=== PATIENT | male | born 1945 | race Caucasian/White ===

== ENCOUNTER 2021-05-21 13:44 | Emergency (ER) | payer BC, MEDICARE ==
--- NOTE | 2021-05-21 13:07 | CT ---
PROCEDURE INFORMATION: Exam: CT Head Without Contrast Exam date and time: 05/21/2021 12:58 PM Age: 76 years old Clinical indication: Syncope and collapse; Additional info: Stroke protocol TECHNIQUE: Imaging protocol: Computed tomography of the head without contrast. Radiation optimization: All CT scans at this facility use at least one of these dose optimization techniques: automated exposure control; mA and/or kV adjustment per patient size (includes targeted exams where dose is matched to clinical indication); or iterative reconstruction. Other technique: STROKE PROTOCOL was implemented. COMPARISON: No relevant prior studies available. FINDINGS: Brain: Mild hypoattenuating foci are noted in the anterior lateral ventricular periventricular white matter bilaterally. No intracranial hemorrhage. No mass or acute cortical infarction identified. Cerebral ventricles: Prominence of the ventricular system and subarachnoid spaces is consistent with the patient's age of 76 years. Paranasal sinuses: Hypoplastic/absent right frontal sinus, normal variant. A cyst/polyp is present in the posterolateral left maxillary sinus. Mastoid air cells: Visualized mastoid air cells are well aerated. Orbital cavity: Bilateral prior cataract surgery. Vasculature: Atherosclerotic calcifications are present involving the carotid artery siphons and vertebral arteries bilaterally. Bones/joints: No acute abnormality. No acute fracture. Soft tissues: Unremarkable. IMPRESSION: 1. Age appropriate supratentorial and infratentorial atrophy. 2. 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 3. No acute intracranial abnormality identified. ASSESSMENT: ASPECTS ([place] Stroke Program Early CT Score) is 10.
--- NOTE | 2021-05-21 13:12 | EDM.PDOC ---
ED HPI GENERAL MEDICAL PROBLEM - General Stated Complaint: AMBULANCE Time Seen by Provider: 05/21/21 13:00 Source of Information: Reports: EMS, RN, RN Notes Reviewed History Limitations: Reports: Altered Mental Status - History of Present Illness INITIAL COMMENTS - FREE TEXT/NARRATIVE: Julio Cesar is a 76 y/o male who presents to the ED via [facility] for complaints of AMS. Per EMS report they received a call from the patient's daughter as they found him down at his home. Last known well was five days ago when the patient spoke his daughter on the phone; his daughter spoke with him on the phone yesterday and felt his speech was garbled and he seemed confused, however she did not check on him again until this morning at 11am. Upon arrival to this facility the patient's GCS 3, he is obtunded with eyes open and agonal breathing; no response to painful stimuli. Saturations high 80s on NRB at 15L. Mottling diffuse to trunk and extremities. Incontinent of bowel and bladder with decubital ulcers to buttocks and perineum - Related Data Allergies Allergy/AdvReac Type Severity Reaction Status Date / Time Unable to Assess Allergy Unverified 05/21/21 13:55 Home Meds: Home Meds . [Unable to Verify Home Med List] 05/21/21 [History] ED ROS GENERAL - Review of Systems Review Of Systems: Comprehensive ROS is negative, except as noted in HPI. - Physical Exam Exam: See Below Exam Limited By: Altered Mental Status General Appearance: Obtunded, Severe Distress Eye Exam: Bilateral Eye: Conjunctival Injection, PERRL (3mm) Ears: Normal External Exam, Normal Canal Nose: Normal Inspection, Normal Mucosa, No Blood Throat/Mouth: No: Normal Teeth (Poor dentition with ), Normal Oropharynx (Dry mucous membranes), Evidence of Tongue Biting Head Exam: Atraumatic, Normocephalic. No: Scalp Lacerations, Scalp Swelling, Scalp Abrasions, Scalp Ecchymosis, Scalp Hematoma, Facial Abrasions, Facial Ecchymosis, Facial Lacerations, Facial Swelling Neck: Normal Inspection Respiratory/Chest: Crackles (To bilateral bases), Accessory Muscle Use (Agonal breathing). No: Rales, Rhonchi, Wheezing, Stridor Cardiovascular: Normal Peripheral Pulses, No Gallop, No JVD, No Murmur, No Rub, Tachycardia. No: No Edema GI/Abdominal: Soft, No Distention, No Abnormal Bruit, No Mass, Pelvis Stable. No: Guarding, Rigid, Rebound (Male) Exam: Rash (Diffuse to bialteral groin with excoriation and ulceration to skin). No: Circumcised, Scrotal Swelling Rectal (Males) Exam: Other (Unstageable sacral ulcer to sacrum with purple and red discoloration) Neuro Exam (Abbreviated): Unresponsive, Abnormal Reflexes, Sensory/Motor Deficit Back Exam: Other (Unstageable sacral ulcer ) Extremities: Pedal Edema (+3 pitting, bilaterally), Slow Capillary Refill, Mottled Skin Exam: Mottled Course - Orders/Labs/Meds Orders: Active Orders 24 hr Category Date Time Status Pulse Oximetry Continuous Monitoring [OM.PC] Routine Oth 05/21/21 13:57 Ordered Labs: Laboratory Tests 05/21/21 05/21/21 05/21/21 Range/Units 13:10 13:10 13:10 WBC 14.0 H (5.0-10.0) 10^3/uL RBC 3.49 L (4.6-6.2) 10^6/uL Hgb 15.0 (14.0-18.0) g/dL Hct 44.8 (40.0-54.0) % MCV 128.4 H (80-100) fL MCH 43.0 H (27.0-34.0) pg MCHC 33.5 (33.0-35.0) g/dL Plt Count 102 L (150-450) 10^3/uL Neut % (Auto) 84.7 H (42.2-75.2) % Lymph % (Auto) 7.3 L (20.5-50.1) % [place] % (Auto) 7.8 (2-8) % Eos % (Auto) 0.1 L (1.0-3.0) % Baso % (Auto) 0.1 (0.0-1.0) % Add Manual Diff Yes Neutrophils % (Manual) 62 (42-75) % Band Neutrophils % 22 % Lymphocytes % (Manual) 9 L (20-50) % Monocytes % (Manual) 7 (2-8) % Vacuolated Monocytes 1+ slight Dohle Bodies 1+ slight Platelet Estimate Decreased Giant Platelets Few Macrocytosis 3+ marked PT 13.9 H (9.0-12.0) SEC INR 1.4 H (0.9-1.2) APTT 35.3 H (22.0-34.0) SEC Sodium 140 (136-145) mmol/L Potassium 4.9 (3.5-5.1) mmol/L Chloride 100 (98-107) mmol/L Carbon Dioxide 12 L (21-32) mmol/L Anion Gap 32.9 H (7-13) mEq/L BUN 148 H (7-18) mg/dL Creatinine 10.45 H* (0.70-1.30) mg/dL Est Cr Clr Drug Dosing TNP Estimated GFR (MDRD) 5 BUN/Creatinine Ratio 14.2 (No establ ref range) Glucose 124 H (70-99) mg/dL POC Glucose (70-99) mg/dL Lactic Acid (0.4-2.0) mmol/L Calcium 9.4 (8.5-10.1) mg/dL Magnesium 3.0 H (1.8-2.4) mg/dL Total Bilirubin 0.8 (0.2-1.0) mg/dL AST 87 H (15-37) U/L ALT 70 H (16-63) U/L Alkaline Phosphatase 81 (46-116) U/L Ammonia (11-32) umol/L Creatine Kinase 1400 H (39-308) U/L Troponin I High Sens 180 H* (<=76) pg/mL C-Reactive Protein 46.1 H (0.0-0.9) mg/dL B-Natriuretic Peptide 279 H (0-100) pg/ml Total Protein 8.6 H (6.4-8.2) g/dL Albumin 3.0 L (3.4-5.0) g/dL Globulin 5.6 Albumin/Globulin Ratio 0.54 TSH, Ultra Sensitive 0.43 (0.36-3.74) uIU/mL Urine Color (YELLOW) Urine Appearance (CLEAR) Urine pH (5.0-9.0) Ur Specific [place] (1.005-1.030) Urine Protein (NEGATIVE) Urine Glucose (UA) (NEGATIVE) Urine Ketones (NEGATIVE) Urine Occult Blood (NEGATIVE) Urine Nitrite (NEGATIVE) Urine Bilirubin (NEGATIVE) Urine Urobilinogen (0.2-1.0) mg/dL Ur Leukocyte Esterase (NEGATIVE) U Hyaline Cast (Auto) Urine RBC (0-5) /HPF Urine WBC (0-5/HPF) /HPF Ur Epithelial Cells (NOT SEEN) /HPF Amorphous Sediment (NOT SEEN) /HPF Urine Mucus (NOT SEEN) /LPF Urine Opiates Screen (NEGATIVE) Ur Oxycodone Screen (NEGATIVE) Urine Methadone Screen (NEGATIVE) Ur Barbiturates Screen (NEGATIVE) U Tricyclic Antidepress (NEGATIVE) Ur Phencyclidine Scrn (NEGATIVE) Ur Amphetamine Screen (NEGATIVE) U Methamphetamines Scrn (NEGATIVE) Urine MDMA Screen (NEGATIVE) U Benzodiazepines Scrn (NEGATIVE) Urine Cocaine Screen (NEGATIVE) U Marijuana (THC) Screen (NEGATIVE) Ethyl Alcohol < 3 (0) mg/dL SARS-CoV-2 RNA ([facility]ANTA) (NEGATIVE) 05/21/21 05/21/21 05/21/21 Range/Units 13:10 13:10 13:33 WBC (5.0-10.0) 10^3/uL RBC (4.6-6.2) 10^6/uL Hgb (14.0-18.0) g/dL Hct (40.0-54.0) % MCV (80-100) fL MCH (27.0-34.0) pg MCHC (33.0-35.0) g/dL Plt Count (150-450) 10^3/uL Neut % (Auto) (42.2-75.2) % Lymph % (Auto) (20.5-50.1) % [place] % (Auto) (2-8) % Eos % (Auto) (1.0-3.0) % Baso % (Auto) (0.0-1.0) % Add Manual Diff Neutrophils % (Manual) (42-75) % Band Neutrophils % % Lymphocytes % (Manual) (20-50) % Monocytes % (Manual) (2-8) % Vacuolated Monocytes Dohle Bodies Platelet Estimate Giant Platelets Macrocytosis PT (9.0-12.0) SEC INR (0.9-1.2) APTT (22.0-34.0) SEC Sodium (136-145) mmol/L Potassium (3.5-5.1) mmol/L Chloride (98-107) mmol/L Carbon Dioxide (21-32) mmol/L Anion Gap (7-13) mEq/L BUN (7-18) mg/dL Creatinine (0.70-1.30) mg/dL Est Cr Clr Drug Dosing Estimated GFR (MDRD) BUN/Creatinine Ratio (No establ ref range) Glucose (70-99) mg/dL POC Glucose (70-99) mg/dL Lactic Acid 7.5 H* (0.4-2.0) mmol/L Calcium (8.5-10.1) mg/dL Magnesium (1.8-2.4) mg/dL Total Bilirubin (0.2-1.0) mg/dL AST (15-37) U/L ALT (16-63) U/L Alkaline Phosphatase (46-116) U/L Ammonia < 10 L (11-32) umol/L Creatine Kinase (39-308) U/L Troponin I High Sens (<=76) pg/mL C-Reactive Protein (0.0-0.9) mg/dL B-Natriuretic Peptide (0-100) pg/ml Total Protein (6.4-8.2) g/dL Albumin (3.4-5.0) g/dL Globulin Albumin/Globulin Ratio TSH, Ultra Sensitive (0.36-3.74) uIU/mL Urine Color Graciela (YELLOW) Urine Appearance Clear (CLEAR) Urine pH 5.0 (5.0-9.0) Ur Specific [place] >= 1.030 (1.005-1.030) Urine Protein 100 H (NEGATIVE) Urine Glucose (UA) Negative (NEGATIVE) Urine Ketones Negative (NEGATIVE) Urine Occult Blood Negative (NEGATIVE) Urine Nitrite Negative (NEGATIVE) Urine Bilirubin Small H (NEGATIVE) Urine Urobilinogen 0.2 (0.2-1.0) mg/dL Ur Leukocyte Esterase Negative (NEGATIVE) U Hyaline Cast (Auto) Rare Urine RBC 0-5 (0-5) /HPF Urine WBC 0-5 (0-5/HPF) /HPF Ur Epithelial Cells Few (NOT SEEN) /HPF Amorphous Sediment Moderate (NOT SEEN) /HPF Urine Mucus Few H (NOT SEEN) /LPF Urine Opiates Screen (NEGATIVE) Ur Oxycodone Screen (NEGATIVE) Urine Methadone Screen (NEGATIVE) Ur Barbiturates Screen (NEGATIVE) U Tricyclic Antidepress (NEGATIVE) Ur Phencyclidine Scrn (NEGATIVE) Ur Amphetamine Screen (NEGATIVE) U Methamphetamines Scrn (NEGATIVE) Urine MDMA Screen (NEGATIVE) U Benzodiazepines Scrn (NEGATIVE) Urine Cocaine Screen (NEGATIVE) U Marijuana (THC) Screen (NEGATIVE) Ethyl Alcohol (0) mg/dL SARS-CoV-2 RNA ([facility]) (NEGATIVE) 05/21/21 05/21/21 05/21/21 Range/Units 13:33 13:38 14:38 WBC (5.0-10.0) 10^3/uL RBC (4.6-6.2) 10^6/uL Hgb (14.0-18.0) g/dL Hct (40.0-54.0) % MCV (80-100) fL MCH (27.0-34.0) pg MCHC (33.0-35.0) g/dL Plt Count (150-450) 10^3/uL Neut % (Auto) (42.2-75.2) % Lymph % (Auto) (20.5-50.1) % [place] % (Auto) (2-8) % Eos % (Auto) (1.0-3.0) % Baso % (Auto) (0.0-1.0) % Add Manual Diff Neutrophils % (Manual) (42-75) % Band Neutrophils % % Lymphocytes % (Manual) (20-50) % Monocytes % (Manual) (2-8) % Vacuolated Monocytes Dohle Bodies Platelet Estimate Giant Platelets Macrocytosis PT (9.0-12.0) SEC INR (0.9-1.2) APTT (22.0-34.0) SEC Sodium (136-145) mmol/L Potassium (3.5-5.1) mmol/L Chloride (98-107) mmol/L Carbon Dioxide (21-32) mmol/L Anion Gap (7-13) mEq/L BUN (7-18) mg/dL Creatinine (0.70-1.30) mg/dL Est Cr Clr Drug Dosing Estimated GFR (MDRD) BUN/Creatinine Ratio (No establ ref range) Glucose (70-99) mg/dL POC Glucose 108 H (70-99) mg/dL Lactic Acid (0.4-2.0) mmol/L Calcium (8.5-10.1) mg/dL Magnesium (1.8-2.4) mg/dL Total Bilirubin (0.2-1.0) mg/dL AST (15-37) U/L ALT (16-63) U/L Alkaline Phosphatase (46-116) U/L Ammonia (11-32) umol/L Creatine Kinase (39-308) U/L Troponin I High Sens (<=76) pg/mL C-Reactive Protein (0.0-0.9) mg/dL B-Natriuretic Peptide (0-100) pg/ml Total Protein (6.4-8.2) g/dL Albumin (3.4-5.0) g/dL Globulin Albumin/Globulin Ratio TSH, Ultra Sensitive (0.36-3.74) uIU/mL Urine Color (YELLOW) Urine Appearance (CLEAR) Urine pH (5.0-9.0) Ur Specific [place] (1.005-1.030) Urine Protein (NEGATIVE) Urine Glucose (UA) (NEGATIVE) Urine Ketones (NEGATIVE) Urine Occult Blood (NEGATIVE) Urine Nitrite (NEGATIVE) Urine Bilirubin (NEGATIVE) Urine Urobilinogen (0.2-1.0) mg/dL Ur Leukocyte Esterase (NEGATIVE) U Hyaline Cast (Auto) Urine RBC (0-5) /HPF Urine WBC (0-5/HPF) /HPF Ur Epithelial Cells (NOT SEEN) /HPF Amorphous Sediment (NOT SEEN) /HPF Urine Mucus (NOT SEEN) /LPF Urine Opiates Screen Negative (NEGATIVE) Ur Oxycodone Screen Negative (NEGATIVE) Urine Methadone Screen Negative (NEGATIVE) Ur Barbiturates Screen Negative (NEGATIVE) U Tricyclic Antidepress Negative (NEGATIVE) Ur Phencyclidine Scrn Negative (NEGATIVE) Ur Amphetamine Screen Negative (NEGATIVE) U Methamphetamines Scrn Negative (NEGATIVE) Urine MDMA Screen Negative (NEGATIVE) U Benzodiazepines Scrn Negative (NEGATIVE) Urine Cocaine Screen Negative (NEGATIVE) U Marijuana (THC) Screen Negative (NEGATIVE) Ethyl Alcohol (0) mg/dL SARS-CoV-2 RNA ([facility]) Positive H (NEGATIVE) Meds: Medications Discontinued Medications Generic Name Dose Route Start Last Admin Trade Name Freq PRN Reason Stop Dose Admin Dexamethasone 6 mg 05/21/21 14:53 05/21/21 15:12 Dexamethasone 4 Mg/Ml Sdv IVPUSH 05/21/21 14:54 6 mg ONETIME ONE Administration Diphenhydramine HCl 25 mg 05/21/21 13:51 Diphenhydramine 50 Mg/Ml Sdv IVPUSH Q6H PRN Itching Diphenhydramine HCl 25 mg 05/21/21 13:51 Diphenhydramine 25 Mg Tab PO Q6H PRN Itching Fentanyl Citrate 0 mcg 05/21/21 14:00 05/21/21 14:33 Fentanyl Citrate/Pf 1,500 Mcg/30 Ml Professional Development Director Vial IV 1,500 mcg ASDIRECTED MEJIA Administration Protocol Albumin Human 25 gm/ Premix 100 mls @ 100 mls/hr 05/21/21 13:09 05/21/21 13:40 IV 05/21/21 14:08 100 mls/hr ONETIME ONE Administration Albumin Human Confirm 05/21/21 13:12 05/21/21 13:41 Flexbumin 25% Administered 05/21/21 13:13 Not Given Dose 50 mls @ as directed .ROUTE .STK-MED ONE Sodium Chloride 1,000 mls @ 999 mls/hr 05/21/21 13:42 05/21/21 13:15 Normal Saline IV 05/21/21 14:42 999 mls/hr .BOLUS ONE Administration Midazolam HCl 50 mg/ Sodium 50 mls @ 1 mls/hr 05/21/21 14:00 05/21/21 14:30 Chloride IV 1 mg/hr ASDIRECTED MEJIA 1 mls/hr Administration Protocol 1 MG/HR Norepinephrine Bitartrate 4 mg 250 mls @ 7.5 mls/hr 05/21/21 14:15 05/21/21 14:31 / Dextrose/Water IV 2 mcg/min TITRATE MEJIA 7.5 mls/hr Administration Protocol 2 MCG/MIN Dopamine HCl/Dextrose 400 mg in 250 mls @ 26.58 mls/hr 05/21/21 14:15 05/21/21 15:14 Dopamine In D5w 400 Mg/250 Ml IV 8 mcg/kg/min TITRATE MEJIA 26.58 mls/hr Administration Protocol 8 MCG/KG/MIN Lactated Ringer's 1,000 mls @ 999 mls/hr 05/21/21 14:18 05/21/21 14:35 Ringers, Lactated IV 05/21/21 15:18 999 mls/hr .BOLUS ONE Administration Naloxone HCl 0.04 mg 05/21/21 13:51 Naloxone 2 Mg/2 Ml Syringe IVPUSH Q3M PRN Respiratory Depression Ondansetron HCl 4 mg 05/21/21 13:51 Ondansetron 4 Mg/2 Ml Sdv IVPUSH Q6H PRN Nausea/Vomiting Pantoprazole Sodium 40 mg 05/21/21 15:07 05/21/21 15:13 Pantoprazole 40 Mg Vial IVPUSH 05/21/21 15:08 40 mg ONETIME ONE Administration - Re-Assessments/Exams Free Text/Narrative Re-Assessment/Exam: 05/21/21 Patient placed on BiPap shortly upon arrival to ED; no improvement in saturations. 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 Patient currently on AC/VC with rate 10, peep 3, FioO2 80%. COVID positive. Patient's daughter, Eduardo, updated on current status and request patient be full code. Case discussed with Dr. Loza, mica miner blasting at [facility], who kindly accepted patient for transfer. Departure - Departure Time of Disposition: 16:40 Disposition: DC/Tfer to [facility] Clinical Impression: Pneumonia due to COVID-19 virus, Acute kidney injury, Elevated troponin Rhabdomyolysis Qualifiers: Rhabdomyolysis type: non-traumatic Qualified Code(s): M62.82 - Rhabdomyolysis - Discharge Information Forms: Interfacility Transfer EMTMALLORY - My Orders Last 24 Hours: My Active Orders 05/21/21 13:57 Pulse Oximetry Continuous Monitoring [OM.PC] Routine - Assessment/Plan Last 24 Hours: My Active Orders 05/21/21 13:57 Pulse Oximetry Continuous Monitoring [OM.PC] Routine
[2021-05-21 13:37] LABS: PTT,PARTIAL THROMBOPLSTIN TIME 35.3 SEC (22.0-34.0)
[2021-05-21 13:44] LABS: AMPHETAMINES,URINE NEGATIVE (NEGATIVE); BARBITURATES,URINE NEGATIVE (NEGATIVE); BENZODIAZEPINE,URINE NEGATIVE (NEGATIVE); MDMA (ECSTASY), URINE NEGATIVE (NEGATIVE); METHADONE,URINE NEGATIVE (NEGATIVE); METHAMPHETAMINES,URINE NEGATIVE (NEGATIVE); OPIATES,URINE NEGATIVE (NEGATIVE); OXYCODONE,URINE NEGATIVE (NEGATIVE); PHENCYCLIDINE,URINE NEGATIVE (NEGATIVE); TCA,URINE NEGATIVE (NEGATIVE)
[~2021-05-21 13:44] MED LIST: Albumin 25% 50 ML ONE; Albumin Human 25 GM in Premix Bag 1 BAG IV ONE; Sodium Chloride 0.9% 1,000 ML IV ONE
[2021-05-21] MEDS ORDERED: Succinylcholine 200 MG/10 ML MDV IV ONE (13:45)
[2021-05-21] MEDS ORDERED: Sodium Chloride 0.9% 10 ML Syringe IV ONE (13:45)
[2021-05-21] MEDS ORDERED: Etomidate 2 MG/ML 20 ML SDV IVPUSH ONE (13:45)
[2021-05-21] MEDS ORDERED: Rocuronium 100 MG/10 ML MDV IV ONE (13:45)
[2021-05-21] MEDS ORDERED: Naloxone 2 MG/2 ML Syringe IVPUSH PRN (13:51)
[2021-05-21] MEDS ORDERED: diphenhydrAMINE 25 MG Tab PO PRN (13:51)
[2021-05-21] MEDS ORDERED: diphenhydrAMINE 50 MG/ML SDV IVPUSH PRN (13:51)
[2021-05-21] MEDS ORDERED: Ondansetron 4 MG/2 ML SDV IVPUSH PRN (13:51)
[2021-05-21 13:52] LABS: ANION GAP 32.9 mEq/L (7-13); CHLORIDE,CL 100 mmol/L (98-107); SODIUM,NA 140 mmol/L (136-145)
[2021-05-21] MEDS ORDERED: Midazolam 50 MG in Sodium Chloride 0.9% 40 ML IV SCH (14:00)
[2021-05-21] MEDS ORDERED: fentaNYL Citrate/PF 1,500 MCG/30 ML PCA Vial IV SCH (14:00)
[2021-05-21] MEDS ORDERED: DOPamine/Dextrose 5%-Water 400 MG/250 ML BAG IV SCH (14:15)
[2021-05-21] MEDS ORDERED: Norepinephrine 4 MG in Dextrose 5% in Water 246 ML IV SCH ×2 (14:15)
[2021-05-21] MEDS ORDERED: Lactated Ringers 1,000 ML IV ONE (14:18)
--- NOTE | 2021-05-21 14:41 | CR ---
PROCEDURE INFORMATION: Exam: XR Chest Exam date and time: 05/21/2021 2:10 PM Age: 76 years old Clinical indication: Device placement; Ett placement (vent status); Additional info: Confirm et tube placement TECHNIQUE: Imaging protocol: XR of the chest. Views: 1 view. Other technique: The lung apices are excluded bilaterally. COMPARISON: No relevant prior studies available. FINDINGS: Tubes, catheters and devices: The feeding tube enters the stomach with the tip in the lower gastric body. An endotracheal tube is not identified as visualized. EKG leads are present overlying the chest. Lungs: Moderate pulmonary hypoexpansion. Bilateral lower lobe pulmonary partial atelectasis. Pleural space: No definite pleural effusion. No pneumothorax as visualized. Heart/Mediastinum: No cardiomegaly. Bones/joints: No acute abnormality identified. IMPRESSION: 1. Moderate pulmonary hypoexpansion. 2. Feeding tube placement as above. 3. An endotracheal tube is not identified as visualized. Repeat imaging may be helpful if needed. 4. Bilateral lower lobe pulmonary partial atelectasis.
[2021-05-21] MEDS ORDERED: Dexamethasone 4 MG/ML SDV IVPUSH ONE (14:53)
[2021-05-21] MEDS ORDERED: Pantoprazole 40 MG in Sodium Chloride 0.9% 100 ML IV ONE (14:54)
[2021-05-21] MEDS ORDERED: Pantoprazole 40 MG Vial IVPUSH ONE (15:07)
== END 2021-05-21 16:20 ==
LOC: DL.ED 13:44
DX: U07.1 COVID-19 (principal); J12.82 Pneumonia due to coronavirus disease 2019; M62.82 Rhabdomyolysis; R79.89 Other specified abnormal findings of blood chemistry; N17.9 Acute kidney failure, unspecified
CPT/HCPCS: 31500; 36415; 36680; 51702; 70450; 71045; 80053; 80305; 80307; 81001; 82140; 82550; 82947; 83605; 83735; 83880; 84443; 84484; 85025; 85610; 85730; 86140; 93005; 96365; 96366; 96367; 96368; 96375; 99285; C9113; J1100; J1265; J2250; J3010; J7030; J7060; J7120; P9047; U0002